=== PATIENT | female | born 1980 | race Caucasian/White ===

== ENCOUNTER 2018-07-07 11:16 | Inpatient (IN) | payer OTHER ==
[~2018-07-07 11:16] MED LIST: METHERGINE IM ONE
[2018-07-07] MEDS ORDERED: REGLAN IV ONE ×2 (12:12→22:00)
[2018-07-07] MEDS ORDERED: BICITRA PO ONE ×2 (12:12→22:00)
[2018-07-07] MEDS ORDERED: PEPCID IV ONE ×3 (12:12→21:38)
[2018-07-07 12:36] LABS: Basophils # (Auto) 0.1 K/mm3 (0.0-0.1); Basophils % (Auto) 0.6 % (0.0-1.8); Eosinophils # (Auto) 0.1 K/mm3 (0.0-0.4); Eosinophils % (Auto) 0.8 % (0.0-4.3); Hematocrit 41.9 % (30.3-42.9); Hemoglobin 14.2 gm/dl (10.1-14.3); Lymphocytes # (Auto) 2.1 K/mm3 (1.2-5.4); Lymphocytes % (Auto) 18.7 % (13.4-35.0); Mean Corpuscular HGB Conc 34 % (30-34); Mean Corpuscular Hemoglobin 31 pg (28-32); Mean Corpuscular Volume 91 fl (79-97); Monocytes # (Auto) 0.4 K/mm3 (0.0-0.8); Monocytes % (Auto) 3.3 % (0.0-7.3); Platelet Count 192 K/mm3 (140-440); Red Blood Count 4.59 M/mm3 (3.65-5.03); Red Cell Distribution Width 12.4 % (13.2-15.2)
[2018-07-07] MEDS ORDERED: PITOCin/NS 20 UNIT/1000ML DRIP 20 UNITS/1,000 ML BAG IV SCH ×3 (13:00→23:45)
[2018-07-07] MEDS ORDERED: ANCEF/STERILE WATER 2 GM/20 ML 2 GM/20 ML SYRINGE IV NR (13:00)
[2018-07-07] MEDS: LACTATED RINGERS 1,000 ML IV SCH ×3 (15:00→20:15)
--- NOTE | 2018-07-07 15:06 | History and Physical Report ---
History of Present Illness Date of examination: 07/07/18 Date of admission: 07/07/18 11:16 Chief complaint: SIUP at 37 weeks and 6 days with SROM. Previous C/section. History of present illness: Patient is a 37 year old , LMP 10/15/17, EDC 07/22/18 at 37 weeks and 6 days gestation who was sent from the clinic for rupture of membranes which happened at 6 AM. Exam revealed clear fluid pooling. She denies any contractions or bleeding. She reports good movement. She also has gestational diabetes and has been on insulin. Past History Past Medical History: diabetes Past Surgical History: section Family/Genetic History: none Social history: no significant social history - Obstetrical History Expected Date of Delivery: 07/22/18 Actual Gestation: 37 Week(s) 6 Day(s) : 2 Para: 1 Number of Living Children: 1 #1 Infant Gender: Female year: 2[age][birth year] Birthweight: 3.175 kg Method of Delivery: Gestational age at delivery: 37 Complications: other (Breech) Medications and Allergies Allergies Allergy/AdvReac Type Severity Reaction Status Date / Time No Known Allergies Allergy Unverified 07/07/18 12:12 Active Meds: Active Medications Cefazolin Sodium (Ancef/Sterile Water 2 Gm/20 Ml) 2 gm in 20 mls @ 80 mls/hr IV PREOP NR; Protocol Stop: 07/07/18 23:59 Lactated Ringer's (Lactated Ringers) 1,000 mls @ 2,250 mls/hr IV PREOP KRISHNA Stop: 07/08/18 13:27 Oxytocin/Sodium Chloride (Pitocin/Ns 20 Unit/1000ml Drip) 20 units in 1,000 mls @ 0 mls/hr IV TITR KRISHNA Oxytocin/Sodium Chloride (Pitocin/Ns 20 Unit/1000ml Drip) 20 units in 1,000 mls @ 0 mls/hr IV TITR KRISHNA Lactated Ringer's (Lactated Ringers) 1,000 mls @ 2,250 mls/hr IV PREOP KRISHNA Stop: 07/08/18 14:27 - Vital Signs Vital signs: Vital Signs Pulse BP 107 H 133/84 07/07/18 11:45 07/07/18 11:45 Temp Pulse Resp BP Pulse Ox 98.5 F 92 H 20 124/77 07/07/18 11:52 07/07/18 14:45 07/07/18 11:52 07/07/18 14:45 - Physical Exam Cardiovascular: Normal S1, Normal S2 Lungs: Positive: Clear to auscultation Vulva: both: normal Deep Tendon Reflex Grade: Normal +2 - Obstetrical FHR: category 1 Uterine Contraction Monitor Mode: External Cervical Dilatation: 1 Cervical Effacement Percentage: 30 station: -2 Uterine Contraction Pattern: Absent Results Result Diagrams: 07/07/18 12:00 Abnormal lab results 07/07/18 Range/Units 12:00 RDW 12.4 L (13.2-15.2) % Seg Neutrophils % 76.6 H (40.0-70.0) % Seg Neutrophils # 8.4 H (1.8-7.7) K/mm3 All other labs normal. Assessment and Plan - Patient Problems (1) 37 weeks gestation of Current Visit: Yes Status: Acute (2) PROM (premature rupture of membranes) Current Visit: Yes Status: Acute (3) Previous section Current Visit: Yes Status: Acute Plan to address problem: Admit to labor floor. Routine preop labs. IV fluids. monitoring. Patient is for repeat C/section. Risks, benefits... Anesthesia notified. Keep pt NPO. (4) Diabetes in Current Visit: Yes Status: Acute Plan to address problem: FS and insulin sliding scale. (5) Advanced maternal age (AMA) in Current Visit: Yes Status: Acute (6) GBS (group B streptococcus) infection Current Visit: Yes Status: Acute Plan to address problem: Patient is ruptured. IV antibiotics ordered for GBS. (7) Obesity Current Visit: Yes Status: Acute Qualifiers: Obesity type: due to excess calories
[2018-07-07] MEDS ORDERED: POLYCILLIN/NS 2 GM/100 ML 2 GM/100 ML BAG IV ONE (15:15)
[2018-07-07] MEDS ORDERED: AFLURIA QUAD 2018-2019 SYRINGE IM ONE (15:40)
[2018-07-07] MEDS ORDERED: BICITRA ONE ×2 (17:37→21:38)
[2018-07-07] MEDS ORDERED: REGLAN ONE ×2 (17:37→21:38)
[2018-07-07] MEDS ORDERED: ASTRAMORPH PF 10MG/10ML ONE (21:34)
[2018-07-07] MEDS ORDERED: ZOFRAN ONE (21:34)
[2018-07-07] MEDS ORDERED: SUBLIMAZE ONE (21:34)
[2018-07-07] MEDS ORDERED: PEPCID IV NR (22:00)
[2018-07-07] MEDS ORDERED: WATER FOR IRRIG STERILE IR ONE (22:20)
[2018-07-07] MEDS ORDERED: NACL 0.9% IR ONE (22:20)
[2018-07-07] MEDS ORDERED: NEO SYNEPHRINE ONE (22:35)
[2018-07-07] MEDS ORDERED: METHERGINE IM ONE (22:55)
[2018-07-07] MEDS ORDERED: MILK OF MAGNESIA PO PRN (23:36)
[2018-07-07] MEDS ORDERED: NARCAN 0.4 MG/1 ML IV PRN (23:36)
[2018-07-07] MEDS ORDERED: LANSINOH TP PRN (23:36)
[2018-07-07] MEDS ORDERED: TUCKS PAD TP PRN (23:36)
[2018-07-07] MEDS ORDERED: ZOFRAN IV PRN (23:36)
[2018-07-07] MEDS ORDERED: D50W (25GM) Syringe IV PRN (23:38)
--- NOTE | 2018-07-07 23:38 | Operative Report ---
Operative Report Operative Report: PREOP Diagnosis 1. 37 6/7 weeks gestation 2. Spontaneous rupture of membranes 3. Previous section 4. Gestational diabetes mellitus on insulin therapy Postop Diagnosis 1. 37 6/7 weeks gestation 2. Spontaneous rupture of membranes 3. Previous section 4. Gestational diabetes mellitus on insulin therapy Procedure: 1. Primary low-transverse section 2. [place] stitch - right uterine artery ligation Findings 1. Viable male infant in the vertex presentation weighing 8lb 0oz, 3260g APGARS 8 at 1 min, 9 at 5 min 2. Normal uterus bilateral ovaries and tubes Surgeon 1. Maris Calvin MD Anesthesia: 1. Epidural I/O: EBL: 400ml UOP: 50ml, clear urine IVF: see anesthesia report Specimens removed: 1. Placenta Complications: none Disposition: Patient taken to recovery room in stable condition INDICATIONS: The patient is a 37yo at 37 6/7weeks with a history of previous section that presented with spontaneous rupture of membranes. Therefore the patient was consented and the risks including but not limited to bleeding, infections, injury to surrounding organs, potential injury to mother/ were discussed. All questions were answered and informed consent signed. PROCEDURE: The patient was taken to the OR in stable condition. Adequate anesthesia was achieved with epidural anesthesia. A boswell catheter was placed. She wore SCDs for DVT prophylaxis and received Ancef for infection prophylaxis. The patient was prepped and draped in the usual fashion and an additional time out was done. A Pfannestiel incision was made in the skin. The fascia was incised and the incision extended laterally. The superior and inferior aspect of the rectus muscle was dissected off of the fascia. Entry into the peritoneum was achieved. The incision was extended caudally. An Damon-O retractor was placed intra- abdominally to aid in visualization. A low-transverse incision made made in the uterus and extended laterally. membranes were ruptured and noted to be clear. The head was brought to the hysterotomy and delivered. The body was delivered and was bulb suctioned. The cord was clamped x 2, cut and handed off to awaiting glass technologist staff. The placenta was delivered intact and 20 units of IV Pitocin were added to LR fluids. The uterus was cleaned of all clots. The uterus was exteriorized. A hematoma and bleeding was noted at the right lateral aspect of the hysterotomy was noted therefore a right ulterine artery ligation was performed. The uterus was repaired with 0- Vicryl in a running, locked stitch and an imbricating layer of the same suture was used. Surgicel was applied to the hysterotomy. Intercede was placed between the rectus muscle and fascial planes. The fascia was closed with 0 Vicryl. Subcutaneous layer reapproximated with 2-0 Vicryl. Skin closed with 4-0 Vicryl. The patient tolerated the procedure well. All counts were correct x 3. Urine was noted to be clear at close of case. I was present and scrubbed for the entire procedure. The patient was taken to the recovery room in stable condition.
[2018-07-07] MEDS ORDERED: SODIUM CHLORIDE FLUSH SYRINGE 10 ML IV NR (23:45)
[2018-07-08] MEDS: LACTATED RINGERS 1,000 ML IV SCH (05:21)
--- NOTE | 2018-07-08 07:32 | Anesthesia Consultation ---
Anesthesia Consult and Med Hx - Airway Anesthetic Teeth Evaluation: Good ROM Head & Neck: Adequate Mental/Hyoid Distance: Adequate Mallampati Class: Class II Intubation Access Assessment: Good - Pulmonary Exam CTA: Yes - Cardiac Exam Cardiac Exam: RRR - Pre-Operative Health Status ASA Pre-Surgery Classification: ASA3 Proposed Anesthetic Plan: Epidural, Spinal - Pulmonary Hx Asthma: No COPD: No Hx Pneumonia: No - Cardiovascular System Hx Hypertension: No Hx Coronary Artery Disease: No - Central Nervous System Hx Neuromuscular Disorder: No Hx Seizures: No Hx Psychiatric Problems: No - Gastrointestinal Hx Ulcer: No - Endocrine Hx Renal Disease: No Hx End Stage Renal Disease: No Hx Insulin Dependent Diabetes: Yes Hx Hypothyroidism: No Hx Hyperthyroidism: No - Hematic Hx Anemia: No Hx Sickle Cell Disease: No - Other Systems Hx Alcohol Use: No Hx Obesity: Yes
--- NOTE | 2018-07-08 07:33 | Post Anesthesia Evaluation ---
- Post Anesthesia Evaluation Patient Participated: Yes Airway Patent: Yes Stable Respiratory Function: Yes Nausea/Vomiting: No Temp > 96.8F: Yes Pain Manageable: Yes Adequeate Hydration: Yes Anesthesia Complications: No Block Receding Appropriately: Yes Patient on Ventilator: Yes
[2018-07-08] MEDS: PERCOCET 5/325 PO PRN (09:51)
[2018-07-08] MEDS: FEOSOL PO SCH (09:51)
[2018-07-08] MEDS: MYLICON PO PRN (09:51)
--- NOTE | 2018-07-08 10:45 | Progress Note ---
Assessment and Plan - Patient Problems (1) S/P repeat low transverse Current Visit: Yes Status: Acute Plan to address problem: POD 1 - stable Continue routine postop orders Discontinue IV fluid & boswell catheter as directed Ambulation encouraged, as tolerated Abdominal binder ordered, prn Anticipate discharge in 48 hours (2) Diabetes in Current Visit: Yes Status: Acute Qualifiers: Gestational diabetes mellitus control: insulin-controlled Trimester: third trimester Plan to address problem: Blood sugars stable (73-93) Continue insulin as directed Subjective - Subjective Date of service: 07/08/18 Principal diagnosis: POD #1; s/p Repeat LTCS, IDDM Patient reports: appetite normal, pain well controlled, other (boswell catheter in place and draining well), no flatus, no bowel movement : doing well (breast and bottle feeding) Objective - Vital Signs Latest vital signs: Vital Signs Temp Pulse Resp BP BP Pulse Ox 07/08/18 07:30 98.3 F 125 H 18 119/81 94 07/08/18 06:20 98.3 F 100 H 20 106/64 07/08/18 01:00 98.1 F 110 H 24 118/66 96 07/08/18 00:45 98.4 F 92 H 28 H 109/74 95 07/08/18 00:30 84 22 120/67 96 07/08/18 00:15 84 13 120/73 96 07/08/18 00:00 96 H 20 102/69 100 07/07/18 23:56 92 H 17 114/73 95 07/07/18 23:51 97.8 F 94 H 19 116/70 96 07/07/18 19:41 98.7 F 93 H 18 119/67 07/07/18 17:05 98.1 F 16 07/07/18 14:45 92 H 124/77 07/07/18 14:15 99 H 134/79 07/07/18 13:46 99 H 141/94 07/07/18 13:16 99 H 123/77 07/07/18 12:46 110 H 122/75 07/07/18 12:16 112 H 123/79 07/07/18 11:52 98.5 F 20 07/07/18 11:45 107 H 133/84 Intake and Output 07/07/18 07/08/18 07/08/18 23:59 07:59 15:59 Intake Total 2850 50 120 Output Total 450 200 Balance 2400 -150 120 Intake: IV 2850 Lactated Ringers 1,000 ml 1000 @ 2250 mls/hr IV PREOP [facility] Rx#:[id number] Oral 120 Intake, Free Water 50 Output: Urine 450 200 Indwelling Catheter 200 Uretheral (Boswell) 50 Void 350 Other: Total, Intake Amount 120 Total, Output Amount 350 200 # Voids Indwelling Catheter 200 Estimated Blood Loss 800 - Exam Abdomen: Present: normal appearance, soft Vulva: both: normal Uterus: Present: normal, firm, fundal height at umbilicus Incision: Present: normal, dry, dressed - Labs Labs: Abnormal lab results 07/07/18 Range/Units 12:00 RDW 12.4 L (13.2-15.2) % Seg Neutrophils % 76.6 H (40.0-70.0) % Seg Neutrophils # 8.4 H (1.8-7.7) K/mm3
[2018-07-08 13:36] LABS: Hematocrit 34.5 % (30.3-42.9); Hemoglobin 11.6 gm/dl (10.1-14.3)
[2018-07-08] MEDS: HumuLIN R SUB-Q SCH ×2 (18:31→18:32)
[2018-07-09] MEDS: MOTRIN PO PRN ×4 (00:39→18:34)
[2018-07-09] MEDS ORDERED: BOOSTRIX IM ONE (06:00)
[2018-07-09] MEDS: MYLICON PO PRN (06:34)
[2018-07-09] MEDS: HumuLIN R SUB-Q SCH (12:00)
[2018-07-09] MEDS: FEOSOL PO SCH (12:00)
--- NOTE | 2018-07-09 18:04 | Progress Note ---
Assessment and Plan A: PPD/POD#2 s/p repeat LTCS IDDM P: H&H ordered Continue current management Discharge for tomorrow SOFIYA Ferro/Kerry Michelle CNM Subjective - Subjective Date of service: 07/09/18 Principal diagnosis: POD #2 ; s/p Repeat LTCS, IDDM Interval history: PP/POD#2 s/p repeat LTCS Patient is doing well. Patient denies headache, dizziness, shortness of breath, chest pain, leg pain, or upper abdominal pain. Patient is passing gas, small lochia, voiding, and ambulating without difficulty. Patient reports: appetite normal, voiding normally, pain well controlled, flatus, bowel movement, ambulating normally, no dizzy ambulation, no nauseated [place]: doing well Objective - Vital Signs Latest vital signs: Vital Signs Temp Pulse Resp BP 07/09/18 16:05 98.5 F 98 H 18 124/76 07/09/18 08:13 98.6 F 94 H 18 103/56 07/09/18 00:00 98.7 F 69 16 114/78 Intake and Output 07/09/18 07/09/18 07/09/18 07:59 15:59 23:59 Intake Total 360 480 Balance 360 480 Intake: Oral 360 480 Other: Total, Intake Amount 360 480 - Exam Cardiovascular: Present: Regular rate, Normal S1, Normal S2 Lungs: Present: Clear to auscultation, Normal air movement Abdomen: Present: normal appearance, soft, normal bowel sounds. Absent: distention, tenderness, guarding Uterus: Present: normal, firm, fundal height below umbilicus Extremities: Present: normal Incision: Present: normal, dry (dried serosanguinous drainage noted), intact, dressed - Labs Labs: Abnormal lab results 07/08/18 07/09/18 07/09/18 Range/Units 17:59 00:39 06:45 POC Glucose 147 H 127 H 109 H (70-105) 07/09/18 Range/Units 11:42 POC Glucose 170 H (70-105)
[2018-07-10] MEDS: MOTRIN PO PRN ×2 (00:59→15:23)
[2018-07-10] MEDS: PERCOCET 5/325 PO PRN (08:02)
[2018-07-10 09:44] VITALS: BP 114/75
[2018-07-10] MEDS: FEOSOL PO SCH (10:19)
--- NOTE | 2018-07-10 15:45 | Progress Note ---
Assessment and Plan A: /postop day 3 S/P repeat LTCS. P: Discharge patient home today. Discussed /postop discharge instructions and warning signs in detail with patient. Advised patient to avoid IC, stair climbing, driving, tub baths, lifting and heavy housework. Advised patient to call OB clinic and make an appointment to return to clinic for follow up in 1 week. Advised pt. re: care of incision and activity restrictions. Symptoms of depression discussed with patient and she was advised to return promptly if any of these symptoms. Healthy diet with no processed foods or sweets discussed with patient. Patient voiced understanding of instructions. SOFIYA Ferro/Krery Michelle CNM Subjective - Subjective Date of service: 07/10/18 Principal diagnosis: POD #3; s/p Repeat LTCS Interval history: PP/POD#3 s/p repeat LTCS Patient is doing well. Desires discharge today. Patient denies headache, dizziness, shortness of breath, cough, chest pain, leg pain, heavy vaginal bleeding, or abdominal pain. Patient is passing gas, voiding without difficulty, and ambulating without difficulty. and bottlefeeding. Patient reports: appetite normal, voiding normally, pain well controlled, flatus, ambulating normally, no dizzy ambulation, no nauseated [place]: doing well Objective - Vital Signs Latest vital signs: Vital Signs Temp Pulse Resp BP BP Pulse Ox 07/10/18 09:42 98.7 F 88 22 114/75 98 07/10/18 00:59 18 07/10/18 00:00 98.7 F 74 18 114/76 07/09/18 16:05 98.5 F 98 H 18 124/76 Intake and Output 07/09/18 07/10/18 07/10/18 23:59 07:59 15:59 Intake Total 680 500 Balance 680 500 Intake: Oral 680 200 Intake, Free Water 300 Other: Total, Intake Amount 200 200 # Voids Void 1 - Exam Narrative Exam: Blood glucose 91. Cardiovascular: Present: Regular rate, Normal S1, Normal S2 Lungs: Present: Clear to auscultation Abdomen: Present: normal appearance, soft, normal bowel sounds. Absent: distention, tenderness Uterus: Present: normal, firm, fundal height below umbilicus. Absent: tenderness Extremities: Present: normal, edema. Absent: tenderness (bilateral ankle and feet edema) Incision: Present: normal, dry, intact - Labs Labs: Abnormal lab results 07/09/18 07/10/18 07/10/18 Range/Units 18:22 01:04 11:49 POC Glucose 114 H 109 H 156 H (70-105)
--- NOTE | 2018-07-10 15:49 | Discharge Summary ---
Providers - Providers Date of Admission: 07/07/18 11:16 Date of discharge: 07/10/18 Attending physician: MARTY ANDREW None Primary care physician: MARTY ANDREW Hospitalization Reason for admission: rupture of membranes Delivery: Procedure: repeat low transverse Incision: normal, dry, intact Other procedures: none complications: none Discharge diagnosis: IUP at term delivered [place] baby: male Pertinent studies: Labs Hospital course: Normal hospital course Condition at discharge: Good Disposition: DC-01 TO HOME OR SELFCARE - Discharge Diagnoses (1) Term delivered Status: Acute Plan - Discharge Medications Prescriptions: Ferrous Sulfate [Feosol 325 MG tab] 325 mg PO BID 30 Days #60 tablet Ibuprofen 800 mg PO Q6H PRN 10 Days #30 tablet MDD 3200mg PRN Reason: Pain, Moderate (4-6) oxyCODONE /ACETAMINOPHEN [Percocet 5/325] 1 tab PO Q4HR PRN 14 Days #30 tab PRN Reason: Pain , Severe (7-10) - Provider Discharge Summary Activity: routine, no sex for 6 weeks, no heavy lifting 4 weeks, no strenuous exercise Diet: routine Instructions: routine Additional instructions: Call your doctor immediately for: * Fever > 100.5 * Heavy vaginal bleeding ( >1 pad per hour) * Severe persistent headache * Shortness of breath * Reddened, hot, painful area to leg or breast * Drainage or odor from incision. * Keep incision clean and dry at all times and follow doctor's instructions regarding bathing/showering - Follow up plan Follow up: MARTY ANDREW MD [Primary Care Provider] - 7 Days
== END 2018-07-10 17:25 | disposition home or self-care (01) | DRG 787 ==
LOC: APU 11:16 → OB 07-08 01:38
PROVIDERS: ADMIT Obstetrics & Gynecology Gynecology; ATTEND Obstetrics & Gynecology Gynecology
PROC: 10D00Z1 Extraction of Products of Conception, Low, Open Approach (ICD-10-PCS; principal; 2018-07-07)
PROC: 04LE0ZT Occlusion of Right Uterine Artery, Open Approach (ICD-10-PCS; 2018-07-07)
DX: O34.211 Maternal care for low transverse scar from previous cesarean delivery (principal); O98.82 Other maternal infectious and parasitic diseases complicating childbirth; O24.429 Gestational diabetes mellitus in childbirth, unspecified control; O42.92 Full-term premature rupture of membranes, unspecified as to length of time between rupture and onset of labor; B95.1 Streptococcus, group B, as the cause of diseases classified elsewhere; E66.9 Obesity, unspecified; O99.214 Obesity complicating childbirth; Z37.0 Single live birth; Z3A.37 37 weeks gestation of pregnancy; Z68.39 Body mass index [BMI] 39.0-39.9, adult; Z79.4 Long term (current) use of insulin
CPT/HCPCS: 36415; 82962; 85014; 85018; 85025; 86592; 86850; 86900; 86901; 90471; 90686; 90715; G0378; A6250; C1765; J0290; J0690; J1815; J2210; J2274; J2370; J2405; J2590; J2765; J3010; J7120